=== PATIENT | male | born 1925 | race Caucasian/White ===

== ENCOUNTER 2016-12-30 12:29 | Emergency (ER) | payer OTHER ==
[~2016-12-30] VITALS: Ht 162.6 cm; Wt 46.7 kg
[~2016-12-30 12:29] MED LIST: ACETAMINOPHEN325 M1 PO; CALCIUM500 M4 PO; CENTRUM SILVER1 EAC3 PO; COLACE100 MG PO; CONSTULOSE10 GM/15 M PO; DILAUDID2 MG PO; DURAGESIC25 MCG TD; GENERLAC10 GM/15 M PO; LACTULOSE10 GM/151 PO; LANTISEPTIC OI113 GM TP; LOW DOSE ASPIRI81 M1 PO; LYRICA50 MG PO; MAGNESIUM CITR100 MG PO; MELATIN3 MG PO; MILK OF MAGN PO; NYAMYC60 GM TP; OMEPRAZOLE20 MG PO; POLYETHYLENE GL17 GM PO; PRILOSEC20 MG PO; PROMETHAZINE HC25 M1 PO; REFRESH TEARS15 ML BOTH EYES; REGLAN10 MG PO; SENEXON-S TABL1 EACH PO; TAB-A-VITE1 EACH PO; TRAMADOL HCL50 MG PO; VALIUM5 MG PO
[2016-12-30] MEDS ORDERED: UNABLE TO OBTAIN (18:27)
[2016-12-30 18:29] VITALS: BP 130/65
[2016-12-30] MEDS ORDERED: LANTISEPTIC OI113 GM TP (22:13)
[2016-12-30] MEDS ORDERED: REFRESH OPTIVE10 ML BOTH EYES (22:18)
[2016-12-30] MEDS ORDERED: MIRTAZAPINE7.5 MG PO (22:21)
== END 2016-12-30 18:32 ==
LOC: EME 12:29
DX: S30.0XXA Contusion of lower back and pelvis, initial encounter (principal); M48.56XA Collapsed vertebra, not elsewhere classified, lumbar region, initial encounter for fracture; M81.0 Age-related osteoporosis without current pathological fracture; W18.30XA Fall on same level, unspecified, initial encounter; Y92.098 Other place in other non-institutional residence as the place of occurrence of the external cause; J45.909 Unspecified asthma, uncomplicated
CPT/HCPCS: 72128; 72131; 72192; 99281; 99285

== ENCOUNTER 2016-12-30 20:32 | Inpatient (IN) | payer OTHER ==
[~2016-12-30] VITALS: Ht 162.6 cm; Wt 49.1 kg
[~2016-12-30 20:32] MED LIST changes: +UNABLE TO OBTAIN
[2016-12-30 20:55] LABS: HEMATOCRIT 34.7 % (38.0-50.0); MCHC 32.6 G/DL (30.0-36.0); MEAN PLAT.VOLUME 10.1 uM^3 (9.0-12.4); PLATELET COUNT 174 K/uL (156-360); RBC DIS.WIDTH-CV 13.5 % (11.8-14.6); RBC DIS.WIDTH-SD 46.2 % (39-53); RED BLOOD COUNT 3.77 M/uL (4.00-5.50); WHITE BLOOD COUNT 4.1 K/uL (4.1-10.2)
[2016-12-30 21:05] LABS: CHLORIDE 104 mEq/L (99-109); POTASSIUM 3.7 mEq/L (3.7-5.4); SODIUM 139 mEq/L (136-147)
[2016-12-30 21:07] LABS: GLUCOSE 170 mg/dL (70-99)
[2016-12-30 21:08] LABS: ANION GAP 11 MEQ/L (2-14)
[2016-12-30 21:11] LABS: GFR ESTIMATE (CALCULATED) > 59 mL/min/
[2016-12-30 21:12] LABS: UREA NITROGEN (BUN) 18 mg/dL (9-23)
[2016-12-30 21:15] LABS: TROP-I INTERPRETATION NEGATIVE; TROPONIN-I 0.02 ng/mL (0.0-0.30)
[2016-12-30] MEDS ORDERED: LANTISEPTIC OI113 GM TP (22:13)
[2016-12-30] MEDS ORDERED: REFRESH OPTIVE10 ML BOTH EYES (22:18)
[2016-12-30] MEDS ORDERED: MIRTAZAPINE7.5 MG PO (22:21)
[2016-12-31 01:31] VITALS: BP 130/64
[2016-12-31 02:32] LABS: ADD MIUA? NO; BILIRUBIN NEGATIVE; BLOOD NEGATIVE; COLOR YELLOW ((YELLOW)); GLUCOSE (STRIP) NEGATIVE; KETONES 5; LEUKOCYTES NEGATIVE; NITRITE NEGATIVE; PROTEIN (STRIP) NEGATIVE; SPECIFIC GRAVITY 1.016 (1.000-1.030); UCUL ADDED? NO; UROBILINOGEN 0.2 MG/DL (0.2-1.0)
[2016-12-31 04:30] VITALS: BP 152/71
[2016-12-31 08:25] VITALS: BP 147/69; BP 148/74; BP 157/69
[2016-12-31 11:05] LABS: TROP-I INTERPRETATION NEGATIVE; TROPONIN-I 0.02 ng/mL (0.0-0.30)
[2016-12-31 11:48] VITALS: BP 134/71
[2016-12-31 15:55] VITALS: BP 162/87
[2016-12-31 19:41] VITALS: BP 126/66
[2017-01-01 04:24] VITALS: BP 164/79
[2017-01-01 05:40] LABS: BASOPHIL COUNT 0.1 K/uL (0-0.1); EOSINOPHIL (%) 4.5 % (0-5); EOSINOPHIL COUNT 0.2 K/uL (0-0.3); IMMATURE GRANULOCYTE (%) 0.2 % (0.0-0.7); INSTRUMENT ABS NEUTROPHIL CT 2.7 K/uL; LYMPHOCYTE COUNT 0.7 K/uL (1.0-2.8); MCH 29.2 PG (29.0-34.0); MCHC 31.6 G/DL (30.0-36.0); MCV 92.5 FL (86-99); MEAN PLAT.VOLUME 10.8 uM^3 (9.0-12.4); MONOCYTE (%) 10.2 % (3-12); MONOCYTE COUNT 0.4 K/uL (0-0.8); NEUTROPHIL COUNT 2.7 K/uL (1.8-6.4); PLATELET COUNT 191 K/uL (156-360); RBC DIS.WIDTH-CV 13.6 % (11.8-14.6); RBC DIS.WIDTH-SD 46.5 % (39-53); RED BLOOD COUNT 4.11 M/uL (4.00-5.50)
[2017-01-01 06:04] LABS: ANION GAP 8 MEQ/L (2-14); CHLORIDE 106 MEQ/L (99-109); GFR ESTIMATE (CALCULATED) > 59 mL/min/; POTASSIUM 4.2 MEQ/L (3.7-5.4); SAMPLE HEMOLYSIS CHECK 0; SAMPLE ICTERIC CHECK 0; SAMPLE LIPEMIA CHECK 0; SODIUM 139 MEQ/L (136-147); UREA NITROGEN (BUN) 12 mg/dL (9-23)
[2017-01-01 06:05] LABS: GLUCOSE 90 mg/dL (70-99)
[2017-01-01 08:36] VITALS: BP 130/78
[2017-01-01 08:38] VITALS: BP 174/75
[2017-01-01 08:40] VITALS: BP 181/108
[2017-01-01 11:43] VITALS: BP 169/84
[2017-01-01 15:47] VITALS: BP 139/92
== END 2017-01-01 18:08 | DRG 312 ==
LOC: EME → EDBD 20:32 → EME 20:32 → EDOF 23:59 → 5WEST 12-31 01:04
PROVIDERS: Emergency Medicine; Internal Medicine; Physician Assistant Medical
DX: R55 Syncope and collapse (principal); I95.9 Hypotension, unspecified; E86.0 Dehydration; G30.9 Alzheimer's disease, unspecified; R54 Age-related physical debility; F02.80 Dementia in other diseases classified elsewhere, unspecified severity, without behavioral disturbance, psychotic disturbance, mood disturbance, and anxiety; R90.82 White matter disease, unspecified; J45.909 Unspecified asthma, uncomplicated; K44.9 Diaphragmatic hernia without obstruction or gangrene; K21.9 Gastro-esophageal reflux disease without esophagitis; K59.01 Slow transit constipation; M81.0 Age-related osteoporosis without current pathological fracture; R13.10 Dysphagia, unspecified; R29.6 Repeated falls; S32.030D Wedge compression fracture of third lumbar vertebra, subsequent encounter for fracture with routine healing; S22.089D Unspecified fracture of T11-T12 vertebra, subsequent encounter for fracture with routine healing; X58.XXXD Exposure to other specified factors, subsequent encounter; Z66 Do not resuscitate; Z68.1 Body mass index [BMI] 19.9 or less, adult; Z79.899 Other long term (current) drug therapy; Z91.81 History of falling; G89.29 Other chronic pain; M54.5 Low back pain; R26.2 Difficulty in walking, not elsewhere classified; Z51.5 Encounter for palliative care
CPT/HCPCS: 70450; 80048; 81003; 84484; 85025; 85027; 93005; 99281; 99285; G0378; G8978 GP CK; G8979 CJ; J7030